=== PATIENT | female | born 1945 | race Caucasian/White ===

== ENCOUNTER 2022-07-25 19:17 | Emergency (ER) | payer OTHER ==
[~2022-07-25] VITALS: Ht 160 cm; Wt 63.5 kg
[2022-07-25 19:55] VITALS: BP 153/69
== END 2022-07-25 21:46 | disposition left against medical advice (07) ==
LOC: MED 19:17
DX: R10.11 Right upper quadrant pain (principal); R19.7 Diarrhea, unspecified; Z53.21 Procedure and treatment not carried out due to patient leaving prior to being seen by health care provider
CPT/HCPCS: 81002; 81025